=== PATIENT | male | born 1980 | race Caucasian/White ===

== ENCOUNTER 2018-02-23 22:30 | Emergency (ER) | payer SELFPAY, OTHER ==
[2018-02-23 23:01] LABS: ADD MAN DIFF? NO
[2018-02-23 23:04] LABS: BASO # 0.1 x10^3/uL (0.0-0.2); BASO % 1 % (0-3); EOS # 0.1 x10^3/uL (0.0-0.7); EOS % 1 % (0-3); HEMATOCRIT 46.4 % (39.0-53.0); HEMOGLOBIN 15.8 g/dL (13.0-17.5); LYMPH # 2.6 x10^3/uL (1.0-4.8); LYMPH % 28 % (24-48); MEAN CORPUSCULAR HEMOGLOBIN 30 pg (25-35); MEAN CORPUSCULAR HGB CONC 34 g/dL (31-37); MEAN CORPUSCULAR VOLUME 89 fL (79-100); MONO # 0.7 x10^3/uL (0.0-1.1); MONO % 7 % (0-9); NEUT # 5.9 x10^3uL (1.8-7.7); NEUT % 63 % (31-73); PLATELET COUNT 277 x10^3/uL (140-400); RED BLOOD COUNT 5.23 x10^6/uL (4.30-5.70); RED CELL DISTRIBUTION WIDTH 13.8 % (11.5-14.5); WHITE BLOOD COUNT 9.4 x10^3/uL (4.0-11.0)
[2018-02-23 23:12] LABS: PROTHROMBIN TIME PATIENT 12.4 SEC (11.7-14.0)
[2018-02-23 23:13] LABS: ANION GAP 10 (6-14); BLOOD UREA NITROGEN 15 mg/dL (8-26); BUN/CREATININE RATIO 10 (6-20); CALCIUM 9.5 mg/dL (8.5-10.1); CARBON DIOXIDE 26 mmol/L (21-32); CHLORIDE 104 mmol/L (98-107); CREATININE 1.5 mg/dL (0.7-1.3); GLUCOSE 121 mg/dL (70-99); POTASSIUM 3.9 mmol/L (3.5-5.1); SODIUM 140 mmol/L (136-145)
[2018-02-23 23:18] LABS: ALBUMIN 3.7 g/dL (3.4-5.0); ALK PHOS 82 U/L (46-116); ALT (SGPT) 64 U/L (16-63); AST (SGOT) 32 U/L (15-37); LIPASE 154 U/L (73-393); MAGNESIUM 1.9 mg/dL (1.8-2.4); TOTAL BILIRUBIN 0.4 mg/dL (0.2-1.0); TOTAL PROTEIN 7.5 g/dL (6.4-8.2)
[2018-02-23] MEDS: ASPIRIN CHEWABLE 81 MG TABLET. PO (23:21)
[2018-02-23 23:23] LABS: TROPONINI < 0.017 ng/mL (0.000-0.055)
[2018-02-23 23:26] LABS: CKMB INDEX 0.3 % (0-4); CKMB MASS 0.8 ng/mL (0.0-3.6); CREATINE KINASE 300 U/L (39-308)
[2018-02-24 01:02] LABS: TROPONINI < 0.017 ng/mL (0.000-0.055)
== END 2018-02-24 01:50 | disposition home or self-care (01) ==
LOC: ER 02-24 01:50
DX: R07.2 Precordial pain (principal); M25.511 Pain in right shoulder; M25.512 Pain in left shoulder; F17.200 Nicotine dependence, unspecified, uncomplicated
CPT/HCPCS: 36415; 71046; 80053; 82553; 83690; 83735; 84484; 85025; 85379; 85610; 93005; 99285-25

== ENCOUNTER → 2019-03-18 | Outpatient (CLI) | payer OTHER ==
[2018-02-23 22:32] VITALS: BP 153/84
[~2019-03-18] MED LIST: FAMO-63 PO
--- NOTE | 2019-03-18 15:55 | KCIC ---
AP and Lateral Views of the Chest 03/18/2019 12:00 AM Indication: Chronic cough, bronchitis. Comparison: Chest radiograph February 24, 2018 Findings: There is no focal consolidation or infiltrate identified. The cardiomediastinal silhouette is within normal limits. There is no evidence of pneumothorax or pleural effusion. No acute osseous abnormalities are identified. Impression: No evidence of acute cardiopulmonary process. Electronically signed by: Blaine Osborn MD (03/18/2019 3:52 PM) [id number]
== END | disposition home or self-care (01) ==
LOC: KCIC 13:55
PROVIDERS: ATTEND Family Medicine
DX: R05 Cough (principal); Z87.09 Personal history of other diseases of the respiratory system
CPT/HCPCS: 71046